=== PATIENT | male | born 1965 | race Caucasian/White ===

== ENCOUNTER 2025-03-22 09:33 | Emergency (ER) | payer MEDICARE ==
--- NOTE | 2025-03-22 10:04 | ED ---
General Adult HPI - General Chief complaint: Shortness of Breath Stated complaint: NADIA Time Seen by Provider: 03/22/25 09:41 Source: patient, RN notes reviewed Mode of arrival: EMS Limitations: no limitations - History of Present Illness Initial comments: 59-year-old male with history of tobacco abuse and [place] with previous stent placement presenting to the emergency department via EMS from [facility] for concerns of difficulty breathing. He states that he feels like he has been having a difficult time taking a deep breath over the past few days. He also reports that he has had a productive green sputum cough. Denies fevers, chills, chest pain, nausea, vomiting. Denies history of DVT, PE, recent travel or surgeries, current blood thinner use - Related Data Previous Rx's Medication Instructions Recorded Albuterol Inhaler [Ventolin Hfa 1 - 2 puff INHALATION Q6H PRN #1 03/22/25 Inhaler] each predniSONE 50 mg PO DAILY #5 tab 03/22/25 Allergies Allergy/AdvReac Type Severity Reaction Status Date / Time No Known Allergies Allergy Verified 03/22/25 09:40 Review of Systems ROS Statement: Those systems with pertinent positive or pertinent negative responses have been documented in the HPI. ROS Other: All systems not noted in ROS Statement are negative. Past Medical History Past Medical History: Myocardial Infarction ([place]) Past Surgical History: Heart Catheterization With Stent, Orthopedic Surgery Past Psychological History: Bipolar, Depression Smoking Status: Current every day smoker Past Drug Use History: Opiates General Exam Limitations: no limitations Neck exam: Present: normal inspection. Absent: tenderness, meningismus, lymphadenopathy Respiratory exam: Present: normal lung sounds bilaterally, wheezes. Absent: respiratory distress, rales, rhonchi, stridor Cardiovascular Exam: Present: regular rate, normal rhythm, normal heart sounds. Absent: systolic murmur, diastolic murmur, rubs, gallop, clicks GI/Abdominal exam: Present: soft, normal bowel sounds. Absent: distended, tenderness, guarding, rebound, rigid Extremities exam: Present: normal inspection, full ROM, normal capillary refill. Absent: tenderness, pedal edema, joint swelling, calf tenderness Back exam: Present: normal inspection Course Vital Signs 03/22/25 03/22/25 03/22/25 09:37 10:00 10:30 Temperature 98 F Pulse Rate 89 80 81 Respiratory 16 20 18 Rate Blood Pressure 125/89 125/89 140/87 O2 Sat by Pulse 100 100 100 Oximetry 03/22/25 03/22/25 03/22/25 10:34 10:42 11:00 Temperature Pulse Rate 82 81 81 Respiratory 18 18 18 Rate Blood Pressure 108/81 O2 Sat by Pulse 100 Oximetry 03/22/25 03/22/25 12:30 13:00 Temperature 98.0 F Pulse Rate 84 89 Respiratory 20 18 Rate Blood Pressure 147/97 137/88 O2 Sat by Pulse 99 100 Oximetry Medical Decision Making - Medical Decision Making Was pt. sent in by a medical professional or institution (, PA, CONSULTING SERVICES ASSOCIATE, urgent care, hospital, or fpc...) When possible be specific @ -No Did you speak to anyone other than the patient for history (EMS, parent, family, police, friend...)? What history was obtained from this source @ -No Did you review nursing and triage notes (agree or disagree)? Why? @ -I reviewed and agree with nursing and triage notes Were old charts reviewed (outside hosp., previous admission, EMS record, old EKG, old radiological studies, urgent care reports/EKG's, fpc records)? Report findings @ -No old charts were reviewed Differential Diagnosis (chest pain, altered mental status, abdominal pain women, abdominal pain men, vaginal bleeding, weakness, fever, dyspnea, syncope, headache, dizziness, GI bleed, back pain, seizure, CVA, palpatations, mental health, musculoskeletal)? @ -Differential Dyspnea: Coronary syndrome, arrhythmia, tamponade, asthma, COPD, pulmonary embolism, pneumonia, pneumothorax, pulmonary effusion, anaphylaxis, diabetic ketoacidosis, flailed chest, pulmonary contusion, diaphragmatic rupture, anemia, neuromuscular, this is not meant to be an all-inclusive list. EKG interpreted by me (3pts min.). @ -Completed at 948 sinus rhythm with a ventricular rate of 83, AK interval 129, QRS 94, QT 365, QTc 405. X-rays interpreted by me (1pt min.). @ -Chest x-ray reveals no acute cardiopulmonary process CT interpreted by me (1pt min.). @ -None done U/S interpreted by me (1pt. min.). @ -None done What testing was considered but not performed or refused? (CT, X-rays, U/S, labs)? Why? @ -None What meds were considered but not given or refused? Why? @ -None Did you discuss the management of the patient with other professionals (professionals i.e. , PA, CONSULTING SERVICES ASSOCIATE, lab, RT, psych nurse, social work faculty member, repack room worker, teacher, chief credit officer, disability case manager)? Give summary @ -No Was smoking cessation discussed for >3mins.? @I discussed smoking cessation for greater than 3 minutes. The risk of smoking were discussed with the patient including but not limited to risks of cancer, stroke, coronary artery disease and COPD. Also discussed with patient were multiple methods of quitting smoking. Lastly we discussed the financial cost of smoking. Was critical care preformed (if so, how long)? @ -No Were there social determinants of health that impacted care today? How? (Homelessness, low income, unemployed, alcoholism, drug addiction, transportation, low edu. Level, literacy, decrease access to med. care, residential, rehab)? @ -No Was there de-escalation of care discussed even if they declined (Discuss DNR or withdrawal of care, Hospice)? DNR status @ -No What co-morbidities impacted this encounter? (DM, HTN, Smoking, COPD, CAD, Cancer, CVA, ARF, Chemo, Hep., AIDS, mental health diagnosis, sleep apnea, morbid obesity)? @ -None Was patient admitted / discharged? Hospital course, mention meds given and route, prescriptions, significant lab abnormalities, going to OR and other pertinent info. @ -Discharge. 59-year-old male presenting EMS from [facility] for concerns of difficulty breathing. Patient is in no signs of respiratory distress on examination with an oxygen saturation of 100% on room air. Patient has mild expiratory wheezes on physical examination. EKG is in sinus rhythm. He is provided with dose of Solu-Medrol and DuoNeb breathing treatment. CBC, CMP, viral testing is unremarkable. Troponin is not elevated. Chest x-ray reveals no signs of focal consolidation. Patient was diagnosed with bronchitis and provided with prednisone and rescue inhaler. Recommend follow-up with primary care provider. Case discussed with my attending Dr. Lester. Undiagnosed new problem with uncertain prognosis? @ -No Drug Therapy requiring intensive monitoring for toxicity (Heparin, Nitro, Insulin, Cardizem)? @ -No Were any procedures done? @ -No Diagnosis/symptom? @ -bronchitis Acute, or Chronic, or Acute on Chronic? @ -Acute Uncomplicated (without systemic symptoms) or Complicated (systemic symptoms)? @ -Uncomplicated Side effects of treatment? @ -No Exacerbation, Progression, or Severe Exacerbation? @ -No Poses a threat to life or bodily function? How? (Chest pain, [place], [place], pneumonia, PE, COPD, DKA, ARF, appy, cholecystitis, CVA, Diverticulitis, Homicidal, Suicidal, threat to staff... and all critical care pts) @ -No - Lab Data Result diagrams: 03/22/25 10:09 03/22/25 10:09 Lab Results 03/22/25 03/22/25 03/22/25 Range/Units 10:09 10:09 10:09 WBC 7.68 (4.50-10.00) 10*3/uL RBC 4.43 (4.40-5.60) 10*6/uL Hgb 13.0 (13.0-17.0) g/dL Hct 38.9 L (39.6-50.0) % MCV 87.8 (80.0-97.0) fL MCH 29.3 (27.0-32.0) pg MCHC 33.4 (32.0-37.0) g/dL Plt Count 269 (140-440) 10*3/uL MPV 8.8 L (9.5-12.2) fL Immature Gran % (Auto) 0.3 % Neutrophils % 57.4 % Lymphocytes % 33.3 % Monocytes % 7.6 % Eosinophils % 1.0 % Basophils % 0.4 % Immature Gran # 0.02 (0.00-0.04) 10*3/uL Neutrophils # 4.41 (1.80-7.70) 10*3/uL Lymphocytes # 2.56 (0.90-5.00) 10*3/uL Monocytes # 0.58 (0.20-1.00) 10*3/uL Eosinophils # 0.08 (0.04-0.35) 10*3/uL Basophils # 0.03 (0.00-0.10) 10*3/uL PT 10.7 (10.0-12.5) sec INR 1.0 (<1.2) APTT 23.3 (22.0-30.0) sec Sodium 140 (137-145) mmol/L Potassium 5.5 H (3.5-5.1) mmol/L Chloride 107 (98-107) mmol/L Carbon Dioxide 22 (22-30) mmol/L Anion Gap 11 mmol/L BUN 34 H (9-20) mg/dL Creatinine 0.88 (0.66-1.25) mg/dL Est GFR (CKD-EPI)AfAm >90 (>60 ml/min/1.73 sqM) Est GFR (CKD-EPI)NonAf >90 (>60 ml/min/1.73 sqM) Glucose 71 L (74-99) mg/dL Calcium 9.6 (8.4-10.2) mg/dL Magnesium 2.2 (1.6-2.3) mg/dL Total Bilirubin 0.7 (0.2-1.3) mg/dL AST 29 (17-59) U/L ALT 20 (4-49) U/L Alkaline Phosphatase 98 (38-126) U/L Troponin I (0.000-0.034) ng/mL Total Protein 8.3 H (6.3-8.2) g/dL Albumin 4.6 (3.5-5.0) g/dL Influenza Type A (PCR) (Not Detectd) Influenza Type B (PCR) (Not Detectd) RSV (PCR) (Not Detectd) SARS-CoV-2 (PCR) (Not Detectd) 03/22/25 03/22/25 Range/Units 10:09 10:40 WBC (4.50-10.00) 10*3/uL RBC (4.40-5.60) 10*6/uL Hgb (13.0-17.0) g/dL Hct (39.6-50.0) % MCV (80.0-97.0) fL MCH (27.0-32.0) pg MCHC (32.0-37.0) g/dL Plt Count (140-440) 10*3/uL MPV (9.5-12.2) fL Immature Gran % (Auto) % Neutrophils % % Lymphocytes % % Monocytes % % Eosinophils % % Basophils % % Immature Gran # (0.00-0.04) 10*3/uL Neutrophils # (1.80-7.70) 10*3/uL Lymphocytes # (0.90-5.00) 10*3/uL Monocytes # (0.20-1.00) 10*3/uL Eosinophils # (0.04-0.35) 10*3/uL Basophils # (0.00-0.10) 10*3/uL PT (10.0-12.5) sec INR (<1.2) APTT (22.0-30.0) sec Sodium (137-145) mmol/L Potassium (3.5-5.1) mmol/L Chloride (98-107) mmol/L Carbon Dioxide (22-30) mmol/L Anion Gap mmol/L BUN (9-20) mg/dL Creatinine (0.66-1.25) mg/dL Est GFR (CKD-EPI)AfAm (>60 ml/min/1.73 sqM) Est GFR (CKD-EPI)NonAf (>60 ml/min/1.73 sqM) Glucose (74-99) mg/dL Calcium (8.4-10.2) mg/dL Magnesium (1.6-2.3) mg/dL Total Bilirubin (0.2-1.3) mg/dL AST (17-59) U/L ALT (4-49) U/L Alkaline Phosphatase (38-126) U/L Troponin I <0.012 (0.000-0.034) ng/mL Total Protein (6.3-8.2) g/dL Albumin (3.5-5.0) g/dL Influenza Type A (PCR) Not Detected (Not Detectd) Influenza Type B (PCR) Not Detected (Not Detectd) RSV (PCR) Not Detected (Not Detectd) SARS-CoV-2 (PCR) Not Detected (Not Detectd) Disposition Clinical Impression: Bronchitis Disposition: HOME SELF-CARE Condition: Good Instructions (If sedation given, give patient instructions): Acute Bronchitis (ED) Additional Instructions: Please return to the Emergency Department if symptoms worsen or any other concerns. Prescriptions: predniSONE 50 mg PO DAILY #5 tab Albuterol Inhaler [Ventolin Hfa Inhaler] 1 - 2 puff INHALATION Q6H PRN #1 each PRN Reason: Shortness Of Breath Is patient prescribed a controlled substance at d/c from ED?: No Referrals: None,Stated [Primary Care Provider] - 1-2 days Forms: Area PCPs Time of Disposition: 12:03
[2025-03-22 10:23] LABS: Basophils # (A) 0.03 10*3/uL (0.00-0.10); Basophils % (A) 0.4 %; Eosinophils # (A) 0.08 10*3/uL (0.04-0.35); Eosinophils % (A) 1.0 %; HCT 38.9 % (39.6-50.0); HGB 13.0 g/dL (13.0-17.0); Lymphocytes # (A) 2.56 10*3/uL (0.90-5.00); Lymphocytes % (A) 33.3 %; MCH 29.3 pg (27.0-32.0); MCHC 33.4 g/dL (32.0-37.0); MCV 87.8 fL (80.0-97.0); Monocytes # (A) 0.58 10*3/uL (0.20-1.00); Monocytes % (A) 7.6 %; Neutrophils # (A) 4.41 10*3/uL (1.80-7.70); Neutrophils % (A) 57.4 %; Platelet Count 269 10*3/uL (140-440); RBC 4.43 10*6/uL (4.40-5.60); RDW 15.7 % (11.5-14.5); WBC 7.68 10*3/uL (4.50-10.00)
--- NOTE | 2025-03-22 10:27 | XR ---
EXAMINATION TYPE: XR chest 2V DATE OF EXAM: 03/22/2025 10:22 AM COMPARISON: None TECHNIQUE: XR chest 2V Frontal and lateral views of the chest. CLINICAL INDICATION:Male, 59 years old with history of difficulty breathing; FINDINGS: Lungs/Pleura: There is no evidence of pleural effusion, focal consolidation, or pneumothorax. Pulmonary vascularity: Unremarkable. Heart/mediastinum: Cardiomediastinal silhouette is unremarkable. Musculoskeletal: Anterior wedging of the T11 vertebral body with approximately 10% height loss and no retropulsion. IMPRESSION: 1. No acute cardiopulmonary disease/process. 2. Age-indeterminate anterior wedge compression deformity of the T11 vertebral body. Correlate with point tenderness. [facility], , 03/22/2025 10:25 AM
[2025-03-22] MEDS: IPRATROPIUM-ALBUTEROL 3 ML NEB INHALATION STA (10:31)
[2025-03-22] MEDS: methylPREDNISolone SOD SUCCI 125 MG/2 ML VIAL IV STA (10:32)
[2025-03-22 10:33] LABS: INR 1.0 (<1.2); Partial Thromboplastin Time 23.3 sec (22.0-30.0); Prothrombin Time 10.7 sec (10.0-12.5)
[2025-03-22 10:36] VITALS: RESP 18
[2025-03-22 10:36] LABS: ALT 20 U/L (4-49); African American GFR (CKD) >90 (>60 ml/min/1.73 sqM); Albumin 4.6 g/dL (3.5-5.0); Anion Gap 11 mmol/L; Blood Urea Nitrogen 34 mg/dL (9-20); Calcium 9.6 mg/dL (8.4-10.2); Carbon Dioxide 22 mmol/L (22-30); Chloride 107 mmol/L (98-107); Glucose 71 mg/dL (74-99); Non-African American GFR(CKD) >90 (>60 ml/min/1.73 sqM); Sodium 140 mmol/L (137-145); Total Protein 8.3 g/dL (6.3-8.2)
[2025-03-22 10:37] LABS: AST 29 U/L (17-59); Alkaline Phosphatase 98 U/L (38-126); Magnesium 2.2 mg/dL (1.6-2.3); Potassium 5.5 mmol/L (3.5-5.1)
[2025-03-22 11:23] LABS: RSV Not Detected (Not Detectd)
[2025-03-22 13:23] VITALS: BP 137/88; PULSE 89; TEMP 98
== END 2025-03-22 13:30 | disposition home or self-care (01) ==
LOC: EC 09:33
DX: J40 Bronchitis, not specified as acute or chronic (principal); F17.200 Nicotine dependence, unspecified, uncomplicated
CPT/HCPCS: 36415; 94640; 93005; 80053; 83735; 84484; 85025; 85610; 85730; 87636; 71046; 99285; 96374; J2919